=== PATIENT | male | born 1945 | race Caucasian/White ===

== ENCOUNTER → 2017-02-17 | Outpatient (CLI) | payer MEDICARE, OTHER ==
--- NOTE | 2017-02-17 12:33 | Diagnostic Imaging Report ---
PROCEDURE: CT abdomen and pelvis without contrast. TECHNIQUE: Multiple contiguous axial images were obtained through the abdomen and pelvis without the use of intravenous contrast. INDICATION: Hematuria. Right lower quadrant abdominal pain. COMPARISON: None. FINDINGS: Included views of the lung bases show partially visualized 5-6 mm micronodule within the included portions of the right middle lobe (images 1 and 2, series 2). CT ABDOMEN: Multiple nonobstructive renal calculi are noted, bilaterally. There are also multiple rounded renal parenchymal hypodensities. These may be on the basis of hypodense cysts. There is also somewhat more amorphous hyperdense area involving the posterior margins of the left kidney. There appears to be some associated focal cortical thinning as well (image 59, series 2). The liver, spleen, pancreas, and adrenal glands have an unremarkable noncontrast CT appearance. There is no loculated fluid collection, free fluid or free air within the abdomen. Normal appendix is identified. Small bowel loops are nondistended. A few scattered colonic diverticuli are noted. There is no CT evidence of acute diverticulitis. No abnormal mesenteric or retroperitoneal adenopathy is seen. There is mild calcified aortic and arterial atherosclerosis. Bony structures show no acute abnormalities. CT PELVIS: Urinary bladder is grossly unremarkable. There is no loculated fluid collection, free fluid or free air within the pelvis. No abnormal lymph nodes are seen. Bony structures show no acute abnormalities. IMPRESSION: 1. Multiple nonobstructive bilateral renal calculi. 2. Probable multiple hypodense renal cysts. 3. More amorphous area involving the posterior margins of the left kidney of uncertain etiology. Conceivably, this could be on the basis of previous infarct. 4. Partially visualized 5-6 mm micronodule within the right middle lobe. Further evaluation with dedicated CT chest is recommended. 5. Colonic diverticulosis, but no CT evidence of acute diverticulitis. Dictated by: Dictated on workstation # [id number]
--- NOTE | 2017-02-17 17:02 | Diagnostic Imaging Report ---
INDICATION: Renal calculi. EXAMINATION: KUB. FINDINGS: There are multiple calculi scattered throughout both kidneys, the largest within the lower pole calyx of the right kidney, measuring approximately 1.5 cm. Largest calculus on the left is in the lower pole, measuring 9 mm. Calcifications are noted in the pelvis likely representing prostatic calcifications. No calculi are seen along the ureteral path. Bowel gas pattern appears normal. IMPRESSION: 1. Bilateral nephrolithiasis. 2. Calcifications in the pelvis low in the midline likely representing prosthetic calcifications. Dictated by: Dictated on workstation # [id number]
== END ==
LOC: RAD 11:17
PROVIDERS: ATTEND Urology
DX: N20.0 Calculus of kidney (principal); K57.90 Diverticulosis of intestine, part unspecified, without perforation or abscess without bleeding
CPT/HCPCS: 74000; 74176

== ENCOUNTER → 2020-05-19 | Outpatient (CLI) | payer MEDICARE, OTHER ==
--- NOTE | 2020-05-19 12:18 | Diagnostic Imaging Report ---
PROCEDURE: CT urinary tract, rule out kidney stone. TECHNIQUE: Multiple contiguous axial images were obtained through the abdomen and pelvis without the use of intravenous contrast. Auto Exposure Controls were utilized during the CT exam to meet ALARA standards for radiation dose reduction. INDICATION: Right flank pain. Patient does have history of kidney stones. COMPARISON: 02/17/2017. FINDINGS: The previously noted micronodule in the right middle lobe is stable at 5 mm. No new abnormality in the lung bases is identified. No discrete liver mass is detected. The gallbladder is unremarkable. No biliary ductal dilatation is detected. The pancreas and spleen are unremarkable. No adrenal mass is detected. Numerous nonobstructing renal calculi are again noted. No definite ureteral calculus or hydronephrosis is identified. Multiple cortical low density lesions are identified within both kidneys, suggestive of cysts. These appear similar to the prior exam. The area of cortical irregularity involving the posterior left kidney is again noted, suggestive of scarring. The unopacified bladder is unremarkable. There are prostatic calcifications present. A fat containing left inguinal hernia is noted. The aorta is non-aneurysmal. The small and large bowel loops are of normal caliber. There is no obstruction. There is moderate stool in the colon. There is no free fluid or fluid collection identified. The bony structures are nonacute. IMPRESSION: 1. Stable right middle lobe pulmonary micronodule. 2. Bilateral nonobstructing nephrolithiasis. No ureteral calculus or hydronephrosis is detected. 3. Bilateral renal cortical low-density lesions, suggestive of cysts, are stable. 4. No acute feature is detected. 5. Fat-containing left inguinal hernia. Dictated by: Dictated on workstation # [id number]
--- NOTE | 2020-05-19 14:02 | Diagnostic Imaging Report ---
INDICATION: Right flank pain, history of stones. TECHNIQUE: 2 supine view of the abdomen 11:53 AM CORRELATION STUDY: 02/17/2017 FINDINGS: Multiple calcifications, bilateral renal silhouettes are again demonstrated. Largest remains within inferior pole of the right kidney approximately 15 mm in size. Several additional smaller 1's are noted more centrally. Largest over the left inferior pole, 9 mm. The overall stone burden appears generally stable. Calcification of the pelvis low midline aspect appear unchanged. Mild vascular calcifications present. Moderate overlying bowel gas and stool obscures detail. IMPRESSION: 1. Bilateral renal stones are again demonstrated with the stone burden and distribution appearing generally stable. Dictated by: Dictated on workstation # [id number]
== END ==
LOC: RAD 11:33
PROVIDERS: ATTEND Urology
DX: N20.0 Calculus of kidney (principal); R91.1 Solitary pulmonary nodule; N28.9 Disorder of kidney and ureter, unspecified; K40.90 Unilateral inguinal hernia, without obstruction or gangrene, not specified as recurrent
CPT/HCPCS: 74018; 74176